=== PATIENT | female | born 1940 | race Caucasian/White ===

== ENCOUNTER 2016-07-11 15:39 | Emergency (ER) | payer OTHER ==
[~2016-07-11] VITALS: Ht 157.5 cm; Wt 62.1 kg
[2016-07-11 15:40] VITALS: BP_SYST 157
--- NOTE | 2016-07-11 15:45 | NUR ---
Pt placed to ER waiting room in stable condition.
--- NOTE | 2016-07-11 16:02 | NUR ---
BROUGHT BACK TO BED #6 AND REPORT GIVEN TO ALEX
--- NOTE | 2016-07-11 16:02 | NUR ---
Pt report received from PHIL Avila. Pt s/p slip and fall while going down stairs and hit left head and left back on edge of steps. ~1.5 cm lac to Left upper head. Bleeding controlled. No crepitus noted. Denies LOC. No trauma noted to left lower back.
--- NOTE | 2016-07-11 16:07 | NUR ---
Dr. Gallo at bedside to assess pt.
[2016-07-11] MEDS ORDERED: BACITRACIN 1 GM OINT TP ONE (16:15)
[2016-07-11] MEDS ORDERED: MORPHINE 2 MG/ML INJ. SYRINGE IVP ONE (16:15)
[2016-07-11] MEDS ORDERED: ONDANSETRON HCL 4 MG/2 ML VIAL IVP ONE (16:15)
[2016-07-11] MEDS ORDERED: LIDOCAINE 1% 10 MG/ML, 20 ML MDV IJ ONE (16:15)
[2016-07-11 16:26] LABS: BASOPHILS # (AUTO) 0.2 K/uL (0.0-0.2); BASOPHILS % (AUTO) 2.1 % (0.0-2.0); EOSINOPHILS # (AUTO) 0.5 K/uL (0.0-0.4); EOSINOPHILS % (AUTO) 5.5 % (0.0-4.0); HEMATOCRIT 40.4 % (36-48); HEMOGLOBIN 13.7 g/dL (12.0-16.0); LYMPHOCYTES # (AUTO) 2.1 K/uL (1.0-5.5); LYMPHOCYTES % (AUTO) 24.3 % (20.5-51.5); MEAN CORPUSCULAR HEMOGLOBIN 33 pg (27-31); MEAN CORPUSCULAR HGB CONC 34 % (32-36); MEAN CORPUSCULAR VOLUME 97 fL (79.0-98.0); MONOCYTES # (AUTO) 0.5 K/uL (0.0-1.0); MONOCYTES % (AUTO) 5.3 % (1.7-9.3); NEUTROPHILS # (AUTO) 5.2 K/uL (1.8-7.7); NEUTROPHILS % (AUTO) 62.8 % (40.0-70.0); PLATELET COUNT (AUTO) 277 K/uL (130-430); RED BLOOD CELL COUNT(AUTO) 4.19 MIL/uL (4.2-6.2); RED CELL DISTRIBUTION WIDTH 11.9 % (9.0-15.0); WHITE BLOOD COUNT (AUTO) 8.5 K/uL (4.8-10.8)
[2016-07-11 16:38] LABS: ANION GAP 3 (5-15); CALCIUM 9.2 mg/dL (8.4-11.0); CHLORIDE 103 mmol/L (98-107); CREATININE 0.75 mg/dL (0.55-1.30); GLUCOSE 129 mg/dL (70-99); POTASSIUM 4.2 mmol/L (3.5-5.1); SODIUM SERUM 137 mmol/L (136-145); UREA NITROGEN, BLOOD 17 mg/dL (8-21)
[2016-07-11 16:42] LABS: INR 0.9 (0.8-1.2); PROTHROMBIN TIME 10.2 SECS (9.5-12.5)
[2016-07-11 16:43] LABS: ALANINE AMINOTRANSFERASE 39 U/L (12-78); ALBUMIN 4.4 g/dL (3.4-4.8); ASPARTATE AMINOTRANSFERASE 26 U/L (10-37); LIPASE 129 U/L (73-393); TOTAL BILIRUBIN 0.3 mg/dL (0.0-1.0)
[2016-07-11] MEDS ORDERED: DIPHENHYDRAMINE INJ 50 MG/ML VIAL IVP ONE (16:45)
--- NOTE | 2016-07-11 17:01 | NUR ---
Dr. Gallo at bedside. Lac to Left head well approximated with 3 chiquita.
[2016-07-11] MEDS ORDERED: IOHEXOL 100 ML IV ONE (17:02)
--- NOTE | 2016-07-11 17:30 | NUR ---
Pt returns from CT.
--- NOTE | 2016-07-11 18:13 | NUR ---
Patient given written and verbal discharge instructions and verbalizes understanding. ER MD discussed with patient the results and treatment provided. Patient in stable condition. ID arm band removed. IV catheter removed intact and dressing applied, no active bleeding. Rx of Tylenol given. Patient educated on pain management and to follow up with PMD. Pain Scale 2/10 tolerable for patient . Opportunity for questions provided and answered
[2016-07-11 18:14] VITALS: BP_SYST 148
== END 2016-07-11 18:14 | disposition home or self-care (01) ==
LOC: SED 15:39
DX: S01.01XA Laceration without foreign body of scalp, initial encounter (principal); S30.1XXA Contusion of abdominal wall, initial encounter; E11.9 Type 2 diabetes mellitus without complications; I10 Essential (primary) hypertension; W01.198A Fall on same level from slipping, tripping and stumbling with subsequent striking against other object, initial encounter; Y93.89 Activity, other specified; Y92.89 Other specified places as the place of occurrence of the external cause; Y99.8 Other external cause status
CPT/HCPCS: 12001; 36415; 70450; 74177; 80053; 83690; 85025; 85610; 85730; 96374; 96375; 99285; J1200; J2001; J2405; J7030; Q9967; J2270